=== PATIENT | female | born 1975 | race Two or more races ===

== ENCOUNTER 2018-03-09 00:32 | Emergency (ER) | payer MEDICAID ==
[~2018-03-09] VITALS: Ht 154.9 cm; Wt 54.4 kg
[2018-03-09] MEDS ORDERED: ACTIVATED CHARCOAL 50 GM/240 ML SOL PO ONE (01:15)
[2018-03-09 01:36] LABS: Eosinophils # (auto) 0.1 uL; Hemoglobin 8.5 g/dL (12.2-16.2); Neutrophils # (auto) 5.3 uL; Red Cell Distribution Width 17.8 % (11.8-14.3); White Blood Cell 8.3 10^3/uL (4.4-10.8)
[2018-03-09 01:38] LABS: Basophils # (auto) 0.1 uL; Basophils % (auto) 0.6 % (0.0-2.0); Hematocrit 29.7 % (36.0-46.0); Lymphocytes # (auto) 2.3 uL; Lymphocytes % (auto) 27.9 % (10.0-50.0); Mean Corpuscular Hemoglobin 18.7 pg (28.0-32.0); Mean Corpuscular Hgb Conc. 28.5 g/dL (32.0-36.0); Mean Corpuscular Volume 65.8 fL (80.0-100.0); Monocytes # (auto) 0.6 uL; Monocytes % (auto) 7.4 % (0.0-12.0); Neutrophils % (auto) 63.1 % (37.0-80.0); Platelet Count (auto) 284 10^3/uL (140-450); Red Blood Cells 4.52 10^6/uL (4.0-5.20)
[2018-03-09 01:55] LABS: Albumin 3.2 g/dL (3.4-5.0); BUN/Creatinine Ratio 13.4; Calcium 7.9 mg/dL (8.5-10.1); Potassium 3.8 mmol/L (3.5-5.1); Salicylate 5.1 mg/dL (2.8-20.0)
[2018-03-09 01:57] LABS: Acetaminophen 3.3 ug/mL (10-30)
[2018-03-09 01:58] LABS: Bilirubin, Total 0.2 mg/dL (0.2-1.0); Total Protein 8.1 g/dL (6.4-8.2)
[2018-03-09] MEDS ORDERED: LEVOFLOXACIN 750MG 150 ML IV ONE (03:00)
[2018-03-09] MEDS ORDERED: SODIUM CHLORIDE 0.9% 1,000 ML IV ONE (03:15)
[2018-03-09 07:49] LABS: Albumin 3.2 g/dL (3.4-5.0); Calcium 7.8 mg/dL (8.5-10.1); Salicylate 5.1 mg/dL (2.8-20.0)
[2018-03-09 07:50] LABS: Bilirubin, Total 0.2 mg/dL (0.2-1.0); Total Protein 7.6 g/dL (6.4-8.2)
[2018-03-09 07:57] LABS: Acetaminophen < 2.0 ug/mL (10-30)
[2018-03-09 07:59] LABS: Urine Bacteria FEW /hpf (None Seen); Urine Blood Negative /uL (Negative); Urine Specific Gravity 1.014 (1.001-1.035); Urine WBC 37 /hpf (0 - 5)
[2018-03-09 08:20] LABS: Amphetamine Screen, Urine NEGATIVE (NEGATIVE); Barbiturate Scree,Urine NEGATIVE (NEGATIVE); Benzodiazephine Screen, Urine NEGATIVE (NEGATIVE); Cannabinoid Screen, Urine POSITIVE (NEGATIVE); Cocaine Screen, Urine NEGATIVE (NEGATIVE); Opiate Scree,Urine NEGATIVE (NEGATIVE); Phencyclidine Screen, Urine NEGATIVE (NEGATIVE)
[2018-03-09] MEDS ORDERED: KETOROLAC TROMETH 30 MG/ML 1ML VIAL IV ONE (08:30)
[2018-03-09 13:18] VITALS: BP 136/72
== END 2018-03-09 14:45 | disposition home or self-care (01) ==
LOC: EDBD 00:32 → EDSEX 00:32 → ER 00:32
DX: T43.012A Poisoning by tricyclic antidepressants, intentional self-harm, initial encounter (principal); F32.9 Major depressive disorder, single episode, unspecified; F17.210 Nicotine dependence, cigarettes, uncomplicated; F12.10 Cannabis abuse, uncomplicated; M19.90 Unspecified osteoarthritis, unspecified site; F10.129 Alcohol abuse with intoxication, unspecified; R11.2 Nausea with vomiting, unspecified; Y90.6 Blood alcohol level of 120-199 mg/100 ml; Y92.89 Other specified places as the place of occurrence of the external cause
CPT/HCPCS: 36415; 80053; 80307; 80320; 80329; 81001; 83874; 85025; 93005; 94761; 96365; 96366; 96375; 99285; J1885; J1956; J7030